=== PATIENT | female | born 1960 | race Caucasian/White ===

== ENCOUNTER 2019-12-01 05:20 | Inpatient (IN) | payer OTHER ==
[2019-11-19 12:40] LABS: BASOPHILS % (AUTO) 0.3 % (0-1); EOSINOPHILS # (AUTO) 0.1 X10'3 (0-0.9); EOSINOPHILS % (AUTO) 0.8 % (0-6); LYMPHOCYTES # (AUTO) 1.4 X10'3 (1.1-4.8); LYMPHOCYTES % (AUTO) 21.2 % (21-51); MEAN CORPUSCULAR HEMOGLOBIN 31.1 PG (27.0-31.0); MEAN CORPUSCULAR VOLUME 91.4 FL (78-98); MEAN PLATELET VOLUME 7.5 FL (7.4-10.4); MONOCYTES # (AUTO) 0.7 X10'3 (0-0.9); MONOCYTES % (AUTO) 10.6 % (2-12); NEUTROPHILS # (AUTO) 4.5 X10'3 (1.8-7.7); NEUTROPHILS % (AUTO) 67.1 % (42-75); PRE OP HEMATOCRIT 41.4 % (35.0-45.0); PRE OP HEMOGLOBIN 14.1 g/dL (12.0-16.0); PRE OP PLATELET COUNT 417 X10'3 (140-440); RED BLOOD COUNT 4.53 X10'6 (4.20-5.60); RED CELL DISTRIBUTION WIDTH 13.5 % (11.5-14.5)
[2019-11-19 12:52] LABS: HEMOGLOBIN A1C 5.8 % (4.5-6.2)
[2019-11-19 12:55] LABS: PRE OP PROTIME 9.9 SECONDS (9.0-12.0)
[2019-11-19 13:00] LABS: ALBUMIN 3.9 G/DL (3.4-5.0); ALKALINE PHOSPHATASE 67 IU/L (46-116); BLOOD UREA NITROGEN 28 MG/DL (7-18); BUN/CREATININE RATIO 27.5 (6.6-38.0); CALCIUM 9.5 MG/DL (8.5-10.1); CHLORIDE 106 MMOL/L (99-107); CREATININE 1.02 MG/DL (0.40-0.90); PRE OP ALT 17 U/L (30-65); PRE OP ANION GAP 8 (8-16); PRE OP AST 14 U/L (10-37); PRE OP BILIRUB, TOTAL 0.4 MG/DL (0.0-1.0); PRE OP GLUCOSE 113 MG/DL (70-104); PRE OP POTASSIUM 3.9 MMOL/L (3.4-5.1); PRE OP SODIUM 142 MMOL/L (135-145); TOTAL CARBON DIOXIDE 28.2 MMOL/L (24-32); TOTAL PROTEIN 7.8 G/DL (6.4-8.2); eGFR 55 ML/MIN
[2019-12-01] VITALS (18 sets, daily range): BP systolic 90–127; BP diastolic 48–89
[~2019-12-01] VITALS: Ht 165.1 cm; Wt 89.4 kg
[~2019-12-01 05:20] MED LIST: CHOL200077 PO; EST1T PO; MEDR2.5T7 PO; METF500T PO; MULT-381 PO; OMEG-167 PO; OMEP-50 PO
[2019-12-01] MEDS ORDERED: celeCOXIB 100mg capsule PO ONE (05:30)
[2019-12-01] MEDS ORDERED: tranexamic acid inj. 1,000 MG in normal saline 100 ML IV ONE (05:30)
[2019-12-01] MEDS ORDERED: cefazolin/dext.iso 2gm/50ml 50 ML IV ONE (05:30)
[2019-12-01] MEDS ORDERED: vancomycin inj 1,500 MG in normal saline 300ml IV soln IV ONE (05:30)
[2019-12-01] MEDS ORDERED: gabapentin 300mg capsule PO ONE (05:30)
[2019-12-01] MEDS ORDERED: metoclopramide 5 mg/ml inj IV ONE (05:30)
[2019-12-01] MEDS ORDERED: famotidine 20mg tablet PO ONE (05:30)
[2019-12-01] MEDS ORDERED: acetaminophen 325mg tablet PO ONE (05:30)
[2019-12-01] MEDS ORDERED: oxyCODONE SR 10mg (sust. release) tab -2 tabs (20mg) PO ONE (05:30)
[2019-12-01] MEDS ORDERED: LIDOcaine 1% (10mg/ml) 2ml vial ONE (05:59)
[2019-12-01] MEDS: ringers solution, lacted 1,000 ML IV SCH ×2 (06:07→15:54)
[2019-12-01] MEDS ORDERED: epiNEPHrine 1 mg/ml inj ONE (06:38)
[2019-12-01] MEDS ORDERED: ketorolac trometh. 30mg/ml inj. ONE (06:38)
[2019-12-01] MEDS ORDERED: cloNIDine hcl/PF 100mcg/ml inj ONE (06:38)
[2019-12-01] MEDS ORDERED: ROPIVAcaine 0.5% (5mg/ml) 30ml vial ONE (06:38)
[2019-12-01] MEDS ORDERED: glucagon, human recombinant 1mg kit SUBCUT PRN (06:50)
[2019-12-01] MEDS ORDERED: magnesium hydroxide 30ml (MOM) UD suspension PO PRN (06:50)
[2019-12-01] MEDS ORDERED: HYDROmorphone inj. 0.5 MG/0.5 ML DISP.SYRIN IV PRN (06:50)
[2019-12-01] MEDS ORDERED: acetaminophen 325mg tablet PO PRN (06:50)
[2019-12-01] MEDS ORDERED: insulin Lispro (HumaLOG) vial - multi-dose SQ SCH (06:50)
[2019-12-01] MEDS ORDERED: HYDROmorphone 1 mg/ml syringe IV PRN (06:50)
[2019-12-01] MEDS ORDERED: dextrose ORAL solution 15 GM/59 ML bottle PO PRN ×2 (06:50)
[2019-12-01] MEDS ORDERED: dextrose 50%-water 50ml dispensing syringe IV PRN ×2 (06:50)
[2019-12-01] MEDS ORDERED: MESSAGE TO PHARMACY PO ONE (06:50)
[2019-12-01] MEDS ORDERED: diphenhydrAMINE 25mg capsule PO PRN ×2 (06:50)
[2019-12-01] MEDS ORDERED: ondansetron/PF 4mg/2ml inj IV PRN ×2 (06:50→08:20)
[2019-12-01] MEDS ORDERED: bisacodyl 10mg suppository rectal RC PRN (06:50)
[2019-12-01] MEDS ORDERED: fentaNYL/PF 50MCG/1 ML 2ML syringe ONE (07:08)
[2019-12-01] MEDS ORDERED: propofol inj 20 ML IV ONE (07:20)
[2019-12-01] MEDS ORDERED: diphenhydrAMINE 50 mg/ml inj ONE (07:20)
[2019-12-01] MEDS ORDERED: LIDOcaine 1%/PF 5ML 10 MG/ML VIAL ONE (07:20)
[2019-12-01] MEDS: enoxaparin 40mg/0.4ml syringe SQ SCH (08:00)
[2019-12-01] MEDS: ascorbic acid 500mg tablet PO SCH ×2 (08:00→20:07)
[2019-12-01] MEDS: gabapentin 300mg capsule PO SCH ×3 (08:00→20:06)
[2019-12-01] MEDS: multivitamins, therapeutics tablet PO SCH (08:00)
[2019-12-01] MEDS ORDERED: vancomycin 1,000mg inj ONE (08:14)
[2019-12-01] MEDS ORDERED: ringers solution, lacted 1,000 ML IV SCH (08:19)
[2019-12-01] MEDS ORDERED: proCHLORperazine 10 MG/2 ml inj IV PRN (08:20)
[2019-12-01] MEDS ORDERED: morphine 4 MG/ML inj SYRINge IV PRN (08:20)
[2019-12-01] MEDS ORDERED: morphine 2 MG/ML inj. syringe IV PRN (08:20)
[2019-12-01] MEDS ORDERED: meperidine/PF 25mg/ml syringe IV PRN ×3 (08:20)
--- NOTE | 2019-12-01 09:15 | NUR ---
Received from OR via BED, accompanied by Anesthesiologist DR HARRIS and report given by Anesthesiolgist. PATIENT A&OX4, DENIES PAIN, V/S WNL, NEUROVASCULAR CHECKS INTACT, 18G PIV LUE , DRESSING TO LEFT KNEE CDI W/ COLD POWDER PACK AND W/ SCD ON. . SENSATION T-12.
[2019-12-01] MEDS ORDERED: ROPIVAcaine 0.2% (10 MG/5 ML) BOLUS INJECTION ADDCANAL PRN (10:15)
--- NOTE | 2019-12-01 10:15 | NUR ---
PATIENT A&OX4, DENIES PAIN, V/S WNL, NEUROVASCULAR CHECKS INTACT, LUE 18G PIV RUE , UCHE DRESSING TO LEFT KNEE CDI W/ COLD POWDER PACK , SENSATION T-12. PATIENT TAKEN TO 4009B WITH ALL BELONGINGS AND HOOKED UP TO MONITORS IN ROOM AND REPORT GIVEN TO RN WHO HAS TAKEN OVER PATIENT CARE.
[2019-12-01] MEDS: ROPIVAcaine 0.2%/PF PUMP/bolus 550 ML ADDCANAL SCH (12:27)
[2019-12-01] MEDS ORDERED: tranexamic acid inj. 1,000 MG in normal saline 100ml IV soln 100 ML IV ONE (15:00)
[2019-12-01] MEDS: potassium cl 20mEq in 1/2 NS 1,000 ML IV SCH ×2 (15:57→17:30)
[2019-12-01] MEDS: cefazolin/dext.iso 2gm/50ml 50 ML IV SCH (16:15)
[2019-12-01] MEDS: oxyCODONE/APAP 10/325mg tablet PO PRN (17:25)
--- NOTE | 2019-12-01 18:15 | NUR ---
REPORT TO TANO BEY
--- NOTE | 2019-12-01 18:30 | NUR ---
Patient in room [facility]TH[facility] 4009. I have received report from SOTERO PORRAS and had the opportunity to ask questions and assume patient care.
[2019-12-01] MEDS: sennosides 8.6mg tablet PO SCH (20:06)
[2019-12-02] MEDS: cefazolin/dext.iso 2gm/50ml 50 ML IV SCH (00:29)
[2019-12-02 02:00] VITALS: BP 112/48
[2019-12-02] MEDS: oxyCODONE/APAP 10/325mg tablet PO PRN ×5 (02:59→21:55)
[2019-12-02] MEDS: potassium cl 20mEq in 1/2 NS 1,000 ML IV SCH ×3 (03:01→20:57)
[2019-12-02 06:00] VITALS: BP 114/53
--- NOTE | 2019-12-02 06:23 | NUR ---
Problems reprioritized. Patient report given, questions answered & plan of care reviewed with SOTERO PORRAS.
[2019-12-02] MEDS: gabapentin 300mg capsule PO SCH ×3 (07:22→19:33)
[2019-12-02] MEDS: pantoprazole 40mg Tablet.DR PO SCH (07:22)
[2019-12-02] MEDS: ascorbic acid 500mg tablet PO SCH ×2 (07:23→19:33)
[2019-12-02] MEDS: multivitamins, therapeutics tablet PO SCH (07:23)
[2019-12-02] MEDS: medroxyprogesterone acet. 2.5mg tablet PO SCH (07:24)
[2019-12-02 07:39] LABS: BASOPHILS % (AUTO) 0.1 % (0-1); EOSINOPHILS % (AUTO) 0.2 % (0-6); HEMATOCRIT 34.5 % (35.0-45.0); HEMOGLOBIN 11.5 g/dl (12.0-16.0); LYMPHOCYTES # (AUTO) 1.4 X10'3 (1.1-4.8); MEAN CORPUSCULAR HEMOGLOBIN 30.9 PG (27.0-31.0); MEAN CORPUSCULAR HGB CONC 33.5 g/dL (33.0-36.5); MEAN CORPUSCULAR VOLUME 92.2 FL (78-98); MEAN PLATELET VOLUME 7.6 FL (7.4-10.4); MONOCYTES # (AUTO) 1.2 X10'3 (0-0.9); MONOCYTES % (AUTO) 11.1 % (2-12); NEUTROPHILS # (AUTO) 7.9 X10'3 (1.8-7.7); NEUTROPHILS % (AUTO) 75.6 % (42-75); PLATELET COUNT 330 X10'3 (140-440); RED BLOOD COUNT 3.74 X10'6 (4.20-5.60); RED CELL DISTRIBUTION WIDTH 13.4 % (11.5-14.5); WHITE BLOOD COUNT 10.4 X10'3 (4.5-11.0)
[2019-12-02 07:55] LABS: ANION GAP 7 (8-16); CHLORIDE 107 MMOL/L (99-107); POTASSIUM 4.1 MMOL/L (3.5-5.1); SODIUM 141 MMOL/L (135-145); TOTAL CARBON DIOXIDE 27.1 MMOL/L (24-32)
[2019-12-02 10:00] VITALS: BP 93/51
[2019-12-02] MEDS: enoxaparin 40mg/0.4ml syringe SQ SCH (10:41)
--- NOTE | 2019-12-02 12:12 | NUR ---
Joint Replacement Consult: Pt seen by [facility] for written/verbal high protein ed w/ RD contact information provided. Pt is agreeable to [employer] yogurt at lunches; dietary notified. Will continue to monitor. Addendum: 12/02/19 at [address] Amended: Links added.
--- NOTE | 2019-12-02 18:00 | NUR ---
RECEIVED REPORT FROM VERN BEY AND ASSUMED PATIENT CARE
[2019-12-02 18:21] VITALS: BP 121/76
[2019-12-02] MEDS: sennosides 8.6mg tablet PO SCH (19:33)
[2019-12-02] MEDS: celeCOXIB 100mg capsule PO SCH (19:33)
[2019-12-02 22:00] VITALS: BP 106/52
[2019-12-03] MEDS: oxyCODONE/APAP 10/325mg tablet PO PRN ×3 (03:15→11:08)
[2019-12-03] MEDS: ROPIVAcaine 0.2%/PF PUMP/bolus 550 ML ADDCANAL SCH (05:31)
--- NOTE | 2019-12-03 06:03 | NUR ---
REPORT GIVEN TO GEE BEY
--- NOTE | 2019-12-03 06:04 | NUR ---
Patient in room [facility]TH[facility] 4009. I have received report from Kasandra BEY and had the opportunity to ask questions and assume patient care.
[2019-12-03 06:05] VITALS: BP 119/60
[2019-12-03 06:55] LABS: BASOPHILS % (AUTO) 0.2 % (0-1); EOSINOPHILS # (AUTO) 0.1 X10'3 (0-0.9); HEMATOCRIT 33.2 % (35.0-45.0); HEMOGLOBIN 11.2 g/dl (12.0-16.0); LYMPHOCYTES # (AUTO) 0.9 X10'3 (1.1-4.8); LYMPHOCYTES % (AUTO) 8.7 % (21-51); MEAN CORPUSCULAR HEMOGLOBIN 30.8 PG (27.0-31.0); MEAN CORPUSCULAR HGB CONC 33.9 g/dL (33.0-36.5); MEAN PLATELET VOLUME 7.6 FL (7.4-10.4); MONOCYTES # (AUTO) 1.2 X10'3 (0-0.9); MONOCYTES % (AUTO) 11.9 % (2-12); NEUTROPHILS # (AUTO) 7.8 X10'3 (1.8-7.7); NEUTROPHILS % (AUTO) 78.2 % (42-75); PLATELET COUNT 311 X10'3 (140-440); RED BLOOD COUNT 3.64 X10'6 (4.20-5.60); RED CELL DISTRIBUTION WIDTH 13.3 % (11.5-14.5)
[2019-12-03] MEDS ORDERED: ENOX40DI11 SQ (07:32)
[2019-12-03] MEDS: pantoprazole 40mg Tablet.DR PO SCH (07:35)
[2019-12-03] MEDS: multivitamins, therapeutics tablet PO SCH (07:35)
[2019-12-03] MEDS: gabapentin 300mg capsule PO SCH (07:35)
[2019-12-03] MEDS: ascorbic acid 500mg tablet PO SCH (07:35)
[2019-12-03] MEDS: celeCOXIB 100mg capsule PO SCH (07:35)
[2019-12-03] MEDS: enoxaparin 40mg/0.4ml syringe SQ SCH (07:36)
[2019-12-03] MEDS: medroxyprogesterone acet. 2.5mg tablet PO SCH (07:36)
[2019-12-03 10:00] VITALS: BP 95/42
--- NOTE | 2019-12-03 11:20 | NUR ---
Patient discharged with . Patient taught all discharge instructions and Emily Louis arranged for patient lovenox shots to be picked at pharmacy. Patient taken out to vehicle in .
== END 2019-12-03 11:11 | disposition home or self-care (01) | DRG 470 ==
LOC: PAS 05:20 → ORTHO 4S 06:54 → UNDOADMOB 06:54 → EDSTATUS 07:30 → PAS 12-02 10:29 → ORTHO 4S 12-02 10:30
PROVIDERS: ADMIT Orthopaedic Surgery; ATTEND Orthopaedic Surgery
PROC: 3E0T3BZ Introduction of Anesthetic Agent into Peripheral Nerves and Plexi, Percutaneous Approach (ICD-10-PCS; 2019-12-01)
PROC: 0SRD0J9 Replacement of Left Knee Joint with Synthetic Substitute, Cemented, Open Approach (ICD-10-PCS; principal; 2019-12-01 07:01)
DX: M17.12 Unilateral primary osteoarthritis, left knee (principal); D62 Acute posthemorrhagic anemia; K21.9 Gastro-esophageal reflux disease without esophagitis; E11.9 Type 2 diabetes mellitus without complications; Z79.899 Other long term (current) drug therapy
CPT/HCPCS: Z7506; Z7508; 36415; 71046; 73560; 80051; 80053; 82948; 83036; 85025; 85610; 85730; 86885; 86900; 86901; 87081; 97110; 97116; 97161; 97530; A4215; A6449; A6454; A7000; C1713; C1776; G0378; J0171; J0735; J1200; J1650; J1815; J1885; J2001; J2405; J2704; J2765; J2795; J3010; J3370; J3480; J7120

== ENCOUNTER → 2024-09-02 | Day surgery (SDC) | payer MEDICARE, OTHER ==
[2024-09-02] VITALS (7 sets, daily range): BP systolic 94–133; BP diastolic 51–69; PULSE 55–86; RESP 14–18; TEMP 99.1; O2SAT 94–99
[~2024-09-02] VITALS: Ht 165.1 cm; Wt 66.1 kg
[~2024-09-02] MED LIST changes: +BUPIVAcaine/PF 2.5mg/ml (0.25%) 10ml vial ONE; +DUPI300P; +ENOX40DI11 SQ; +ESTR10TA; +ESTR1PAT95 TD; +LIDOcaine 1% (10mg/ml)w/preservative inj. 20ml MDV ONE; +LIDOcaine 2% (20mg/ml) 5ml vial ONE; -OMEP-50 PO; +OMEP20CA16 PO; +PROG200C11; +TESTOSTERONE; +acetaminophen 1,000mg/100ml IV 0 ML IV ONE; +acetaminophen 1,000mg/100ml IV 100 ML IV ONE; +dexamethasone sod phosphate 4mg/ml inj. ONE; +fentaNYL/PF 50MCG/1 ML 2ML syringe IV PRN; +fentaNYL/PF 50MCG/1 ML 2ML syringe ONE; +glycopyrrolate 0.2mg/ml inj ONE; +hydrALAZINE 20mg/ml inj. IV PRN; +labetalol 20mg/4ml (5mg/ml) syringe IV PRN; +morphine 4 MG/ML inj SYRINge IV PRN; +neostigmine methylsulfate 1 MG/ML 10ml vial ONE; +ondansetron/PF 4mg/2ml inj IV PRN; +ondansetron/PF 4mg/2ml inj ONE; +oxyCODONE/APAP 5-325mg tablet PO PRN; +propofol inj 20 ML IV ONE; +ringers solution, lacted 1,000 ML IV SCH; +rocuronium 10mg/ml inj IV ONE; +sevoflurane 250ml liquid IH ONE
[2024-09-02] MEDS: ringers solution, lacted 1,000 ML IV SCH (09:05)
[2024-09-02] MEDS: INDOCYANINE GREEN 25 MG/10 ML VIAL IV ONE (09:05)
[2024-09-02] MEDS: famotidine 20mg tablet PO ONE (09:05)
[2024-09-02 09:24] LABS: BASOPHILS % (AUTO) 0.3 % (0-1); EOSINOPHILS # (AUTO) 0.1 X10'3 (0-0.9); EOSINOPHILS % (AUTO) 0.6 % (0-6); LYMPHOCYTES # (AUTO) 1.9 X10'3 (1.1-4.8); LYMPHOCYTES % (AUTO) 21.5 % (21-51); MEAN CORPUSCULAR HEMOGLOBIN 30.6 PG (27.0-31.0); MEAN CORPUSCULAR HGB CONC 33.7 g/dL (33.0-36.5); MEAN CORPUSCULAR VOLUME 90.9 FL (78-98); MEAN PLATELET VOLUME 6.8 FL (7.4-10.4); MONOCYTES # (AUTO) 0.8 X10'3 (0-0.9); MONOCYTES % (AUTO) 9.5 % (2-12); NEUTROPHILS % (AUTO) 68.1 % (42-75); PRE OP HEMATOCRIT 38.2 % (35.0-45.0); PRE OP HEMOGLOBIN 12.9 g/dL (12.0-16.0); PRE OP PLATELET COUNT 479 X10'3 (140-440); PRE OP WHITE BLOOD COUNT 8.8 10'3 (4.8-10.8); RED BLOOD COUNT 4.21 X10'6 (4.20-5.60); RED CELL DISTRIBUTION WIDTH 14.1 % (11.5-14.5)
[2024-09-02] MEDS: ceFAZolin 2gm in dextrose, iso 50 ML IV ONE (09:32)
[2024-09-02 09:37] LABS: ALBUMIN 3.2 G/DL (3.4-5.0); ALBUMIN/GLOBULIN RATIO 0.7 (1.1-1.5); ALKALINE PHOSPHATASE 61 IU/L (46-116); BLOOD UREA NITROGEN 21 MG/DL (7-18); BUN/CREATININE RATIO 23.9 (10.0-20.0); CALCIUM 8.3 MG/DL (8.5-10.1); CHLORIDE 108 MMOL/L (99-107); CREATININE 0.88 MG/DL (0.40-0.90); PRE OP ALT 9 U/L (30-65); PRE OP ANION GAP 9 (8-16); PRE OP AST 14 U/L (10-37); PRE OP BILIRUB, TOTAL 0.3 MG/DL (0.0-1.0); PRE OP GLUCOSE 87 MG/DL (70-104); PRE OP POTASSIUM 3.9 MMOL/L (3.4-5.1); PRE OP SODIUM 143 MMOL/L (135-145); TOTAL CARBON DIOXIDE 26.5 MMOL/L (24-32); TOTAL PROTEIN 7.6 G/DL (6.4-8.2); eCRCL 57 ML/MIN; eGFR 64 ML/MIN
[2024-09-02] MEDS: BUPIVAcaine 2.5mg/ml inj 50ml vial (contains preservative) IJ ONE (12:06)
[2024-09-02] MEDS: morphine 2 MG/ML inj. syringe IV PRN (13:08)
== END | disposition home or self-care (01) ==
LOC: PAS 08:14
PROVIDERS: ATTEND Surgery
DX: K80.10 Calculus of gallbladder with chronic cholecystitis without obstruction (principal); F17.200 Nicotine dependence, unspecified, uncomplicated; Z79.899 Other long term (current) drug therapy; Z79.82 Long term (current) use of aspirin; Z79.890 Hormone replacement therapy; Z79.891 Long term (current) use of opiate analgesic; Z96.652 Presence of left artificial knee joint; Z98.49 Cataract extraction status, unspecified eye; Z98.890 Other specified postprocedural states; Z88.1 Allergy status to other antibiotic agents; Z80.1 Family history of malignant neoplasm of trachea, bronchus and lung
CPT/HCPCS: 36415; 47563; 80053; 82948; 85025; 93005; A4215; A4618; A7000; J0131; J0690; J1100; J2003; J2270; J2405; J2704; J2710; J3010; J3490; J7030; J7120; Z7506; Z7508; Z7512; Z7610